=== PATIENT | female | born 1950 | race American Indian/Alaskan Native ===

== ENCOUNTER 2017-04-12 12:19 | Day surgery (SDC) | payer MEDICARE, BC ==
[2017-04-11 12:08] VITALS: BMI 32.2
[2017-04-12] MEDS ORDERED: Propofol 10 mg/ml Inj (20 ML) ONE (12:44)
[2017-04-12] MEDS ORDERED: Midazolam 2 MG/2 ML VIAL ONE (12:44)
[2017-04-12] MEDS ORDERED: Oxycodone/Acetaminophen 5/325 mg Tab PO PRN (13:00)
--- NOTE | 2017-04-12 13:08 | PCM.SURG1 ---
Surgeon's Initial Post Op Note - Surgeon's Notes Surgeon: Mariam Smith MD Photostat Operator: Agata LAND Type of Anesthesia: IV Sedation Anesthesia Administered By: Dr. Smith Pre-Operative Diagnosis: Left distal radius fx Operative Findings: same Post-Operative Diagnosis: same Operation Performed: Left distal radius closed reduction under fluoroscopy and short arm cast application Specimen/Specimens Removed: none Estimated Blood Loss: EBL {In ML}: 0 Blood Products Given: N/A Drains Used: No Drains Post-Op Condition: Fair Date of Surgery/Procedure: 04/12/17 Time of Surgery/Procedure: 13:07 ([place] [employer] reviewed, no CDS in last year. Patient instructed to take medication as directed, risk of dependence, and proper storage. )
--- NOTE | 2017-04-12 14:04 | RAD ---
PROCEDURE: Left Wrist Radiographs. HISTORY: pt in PACU, s/p closed reduction and casting COMPARISON: None. FINDINGS: BONES: Bony detail obscured by overlying fiberglass cast. Status post close reduction distal radial fracture. Fracture fragments are in near anatomic alignment. Normal carpal alignment maintained. JOINTS: Normal. No dislocation. SOFT TISSUES: Normal. OTHER FINDINGS: None. IMPRESSION: Limited examination. Status post close reduction distal radial fracture.
[2017-04-12 14:18] VITALS: RESP 18; TEMP 98
[2017-04-12 14:50] VITALS: BP 163/65; PULSE 58; O2SAT 95
--- NOTE | 2017-04-12 15:02 | RAD ---
PROCEDURE: Fluoroscopy up to 1 hour HISTORY: CLOSED REDUCTION OF LEFT WRIST UNDER FLUOROSCOPY COMPARISON: TECHNIQUE: Fluoroscopy was provided in the operating room. Five images were submitted FINDINGS: Study shows close reduction of a left radial fracture. There is normal alignment IMPRESSION: As above
--- NOTE | 2017-04-12 23:04 | OP ---
PROCEDURE DATE: 04/12/2017 PREOPERATIVE DIAGNOSIS: Left distal radius fracture. POSTOPERATIVE DIAGNOSIS: Left distal radius fracture. PROCEDURE: Closed reduction of left distal radius fracture and application of cast. SURGEON: Dr. Smith. Dr. Smith was assisted by Ishan Bloom, physician conference assistant. Ms. Bloom was scrubbed and present throughout and helped with obtaining the reduction and applying the cast. TYPE OF ANESTHESIA: Sedation. COMPLICATIONS: None. ESTIMATED BLOOD LOSS: Zero. INDICATIONS FOR PROCEDURE: This is a 67-year-old female who presented with status post fall with left wrist pain. Injury occurred approximately 1 week ago. She subsequently went to a doctor, who ordered x-rays and was diagnosed with a fracture. She presented to me yesterday for further orthopedic evaluation and treatment. On examination, she was tender over the distal radius, had mild swelling about the wrist. Pain with passive or active range of motion of the wrist. Neurovascularly, she was grossly intact. X-ray showed impacted distal radius fracture. Recommendation was for open reduction and internal fixation of the fracture site; however, the patient said she did not want any surgery. The risk of nonoperative management including nonunion and malunion were discussed and she opted to proceed with a closed reduction and casting. DESCRIPTION OF OPERATIVE PROCEDURE: After surgical site was finally identified in the preoperative holding area, the patient was taken to the operating room and placed in supine on the operating table. After administration of sedation, C-arm image intensifier was brought in and images were taken of the wrist in both the AP and lateral planes. Next, a closed reduction was performed. The conference assistant held traction on the upper arm. The *------* reduction was performed and a short-arm cast was applied. Repeat x-rays after the cast at *------* showed an improved alignment in both the AP, lateral and oblique planes, but still with some mild residual shortening. Subsequently, the patient was awaken from the procedure and taken to the recovery room in stable condition. Jean Claude Smith MD
== END 2017-04-12 15:36 | disposition home or self-care (01) ==
LOC: SDS 12:19
PROVIDERS: ATTEND Orthopaedic Surgery
DX: S52.502A Unspecified fracture of the lower end of left radius, initial encounter for closed fracture (principal); W19.XXXA Unspecified fall, initial encounter; Y92.9 Unspecified place or not applicable; I10 Essential (primary) hypertension; E11.9 Type 2 diabetes mellitus without complications; Z79.84 Long term (current) use of oral hypoglycemic drugs
CPT/HCPCS: 25605; 73110; J2001; J2250; J2704; J3010; J7120